=== PATIENT | male | born 1980 | race Caucasian/White ===

== ENCOUNTER 2016-08-02 09:22 | Inpatient (IN) | payer OTHER ==
[2016-08-02 10:48] VITALS: BMI 24.3
--- NOTE | 2016-08-02 14:18 | HP ---
COWS - Scale Resting Pulse: 1= [place] 81-100 Sweatin=Flushed/Facial Moisture Restless Observation: 3= Extraneous Movement Pupil Size: 2= Moderately Dilated Bone or Joint Aches: 2= Severe Diffuse Aches Runny Nose/ Eye Tearin= Runny Nose/Eyes GI Upset > 30mins: 3= Vomiting/Diarrhea Tremor Observation: 2= Slight Tremor Visible Yawning Observation: 2= >3x During Session Anxiety or Irritability: 2=Irritable/Anxious Goose Flesh Skin: 0=Smooth Skin COWS Score: 21 Admission ROS S - HPI Chief Complaint: I NEED HELP TO STOP USING HEROIN AND COCAINE Allergies/Adverse Reactions: Allergies Allergy/AdvReac Type Severity Reaction Status Date / Time No Known Allergies Allergy Verified 08/02/16 11:56 History of Present Illness: THIS 35 YEARS OLD MALE WITH HEROIN AND COCAINE DEPENDENCE,SEEKING HELP TO STOP USING DRUGS,NEVER BEEN IN DETOX BEFORE NICOTINE DEPENDENCE Exam Limitations: No Limitations - Ebola screening Have you traveled outside of the country in the last 21 days: No Have you had contact with anyone from an Ebola affected area: No Have you been sick,other than usual withdrawal symptoms: No - Review of Systems Constitutional: Chills, Diaphoresis, Loss of Appetite, Malaise, Night Sweats, Changes in sleep, Weakness, Unintentional Wgt. Loss EENT: reports: Tearing, Nose Congestion Respiratory: reports: No Symptoms reported Cardiac: reports: Palpitations GI: reports: Diarrhea, Nausea, Vomiting, Abdominal cramping : reports: No Symptoms Reported Musculoskeletal: reports: Back Pain, Joint Pain, Muscle Pain, Joint Stiffness Integumentary: reports: Dryness Hematology: reports: No Symptoms Reported Psychiatric: reports: No Sypmtoms Reported, Judgement Intact, Mood/Affect Appropiate, Orientated x3 Patient History - Patient Medical History Hx Anemia: No Hx Asthma: No Hx Chronic Obstructive Pulmonary Disease (COPD): No Hx Cancer: No Hx Cardiac Disorders: No Hx Congestive Heart Failure: No Hx Hypertension: No Hx Pacemaker: No HX Cerebrovascular Accident: No Hx Seizures: No Hx Dementia: No Hx Diabetes: No Hx Gastrointestinal Disorders: No Hx Liver Disease: No Hx Genitourinary Disorders: No Hx Sexually Transmitted Disorders: No Hx Renal Disease (ESRD): No Hx Thyroid Disease: No Hx Human Immunodeficiency Virus (HIV): No (LAST 2015 NEGATIVE) Hx Hepatitis C: No Hx Depression: No Hx Suicide Attempt: No Hx Bipolar Disorder: No Hx Schizophrenia: No Other Medical History: NO SUICIDAL,NO HOMICIDAL - Patient Surgical History Past Surgical History: Yes Hx Neurologic Surgery: No Hx Cataract Extraction: No Hx Cardiac Surgery: No Hx Lung Surgery: No Hx Breast Surgery: No Hx Breast Biopsy: No Hx Abdominal Surgery: Yes (umbilical hernia repair x2 IN 2007.2013) Hx Appendectomy: No Hx Cholecystectomy: No Hx Genitourinary Surgery: No Hx Section: No Hx Orthopedic Surgery: No Other Surgical History: LEFT INGUINAL HERNIA IN 2007,REMOVAL OF LYMPH NODE RIGHT GROIN IN 2007 Anesthesia Reaction: No - PPD History Previous Implant?: Yes Documented Results: Negative w/o proof Implanted On Prior [facility] Admission?: No PPD to be Administered?: Yes - Smoking Cessation Smoking history: Current every day smoker Have you smoked in the past 12 months: Yes Aproximately how many cigarettes per day: 40 Hx Chewing Tobacco Use: No Initiated information on smoking cessation: Yes 'Breaking Loose' booklet given: 08/02/16 - Substance & Tx. History Hx Alcohol Use: No Hx Substance Use: Yes Substance Use Type: Cocaine, Heroin Hx Substance Use Treatment: No - Substances Abused Heroin Route: Injection Frequency: Daily Amount used: 13 bags Age of first use: 33 Date of Last Use: 08/01/16 Cocaine Route: Injection Frequency: Daily Amount used: $100 Age of first use: 14 Date of Last Use: 07/31/16 Family Disease History - Family Disease History Family History: Denies Admission Physical Exam BHS - Vital Signs Vital Signs: Vital Signs - 24 hr 08/02/16 10:44 Temperature 97.1 F L Pulse Rate 91 H Respiratory 20 Rate Blood Pressure 122/72 - Physical General Appearance: Yes: Moderate Distress, Tremorous, Irritable, Sweating, Anxious HEENTM: Yes: Normal ENT Inspection, [place], Pharynx Normal Respiratory: Yes: Lungs Clear, Normal Breath Sounds, No Respiratory Distress Neck: Yes: Within Normal Limits, Supple, Trachea in good position Breast: Yes: Within Normal Limits Cardiology: Yes: Within Normal Limits, Regular Rhythm, Regular Rate, S1, S2 Abdominal: Yes: Within Normal Limits, Normal Bowel Sounds, Non Tender, Flat, Soft Genitourinary: Yes: Within Normal Limits Back: Yes: Within Normal Limits, Normal Inspection, Muscle Spasm Musculoskeletal: Yes: full range of Motion, Back pain, Muscle Pain Extremities: Yes: Within Normal Limits, Normal Inspection, Normal Range of Motion Neurological: Yes: high value associate II-XII NML intact, Fully Oriented, Alert, Motor Strength 5/5 Integumentary: Yes: Dry, Track Meyers Lymphatic: Yes: Within Normal Limits - Diagnostic (1) Opioid dependence with withdrawal Current Visit: Yes Status: Acute (2) Weight loss Current Visit: Yes Status: Acute (3) Nicotine dependence Current Visit: Yes Status: Acute Cleared for Admission [facility] - Detox or Rehab [facility] Level of Care: Medically Managed Detox Regimen/Protocol: Methadone [facility] Breath Alcohol Content Breath Alcohol Content: 0 Urine Drug Screen - Results Drug Screen Negative: No Urine Drug Screen Results: NETTA-Cocaine, OPI-Opiates
[2016-08-02] MEDS ORDERED: P-EPHED 60MG/TRIPROLIDI 2.5MG TABLET PO PRN (14:28)
[2016-08-02] MEDS ORDERED: guaiFENesin/D-METHORPHAN HB 10 ML UNIT-DOSE CUPS PO PRN (14:28)
[2016-08-02] MEDS ORDERED: MAG HYDROX/AL HYDROX/SIMETH 30 ML UNIT-DOSE CUP PO PRN (14:28)
[2016-08-02] MEDS ORDERED: IBUPROFEN 400 MG TABLET (FP) PO PRN (14:28)
[2016-08-02] MEDS ORDERED: MAGNESIUM HYDROX 2400MG/30ML ORAL SUSPENSION 30 ML CUP PO PRN (14:28)
[2016-08-02] MEDS ORDERED: MENTHOL/PHENOL 1 EACH UD MM PRN (14:28)
[2016-08-02] MEDS ORDERED: MAGNESIUM CITRATE 300 ML BOTTLE PO PRN (14:28)
[2016-08-02] MEDS ORDERED: ACETAMINOPHEN 325 MG TABLET (FP) PO PRN (14:28)
[2016-08-02] MEDS ORDERED: LOPERAMIDE HCL 2 MG CAPSULE PO PRN (14:28)
[2016-08-02] MEDS ORDERED: NICOTINE POLACRILEX 2 MG GUM BUC PRN (14:28)
[2016-08-02] MEDS ORDERED: METHADONE HCL 10 MG TABLET (FOR DETOX USE ONLY) PO ONE ×2 (15:00→23:00)
[2016-08-02] MEDS: diazePAM 5 MG TABLET PO PRN ×2 (15:09→19:15)
[2016-08-02 17:17] LABS: URINE APPEARANCE CLEAR; URINE BILIRUBIN NEGATIVE (NEGATIVE); URINE BLOOD NEGATIVE (NEGATIVE); URINE COLOR LTYELLOW; URINE GLUCOSE (UA) NEGATIVE (NEGATIVE); URINE KETONE NEGATIVE (NEGATIVE); URINE LEUK ESTERASE NEGATIVE (NEGATIVE); URINE NITRITE NEGATIVE (NEGATIVE); URINE PROTEIN NEGATIVE (NEGATIVE); URINE UROBILINOGEN NEGATIVE E.U./dl (0.2-1.0)
[2016-08-02] MEDS: CYCLOBENZAPRINE HCL 10 MG TABLET (FP) PO PRN (20:50)
[2016-08-02] MEDS: diphenhydrAMINE HCL 50 MG CAPSULE PO PRN (22:45)
[2016-08-02] MEDS: cloNIDine HCL 0.1 MG TABLET PO SCH (22:45)
[2016-08-02] MEDS: THIAMINE HCL 100 MG TABLET (FP) PO SCH (22:46)
[2016-08-03] MEDS: CYCLOBENZAPRINE HCL 10 MG TABLET (FP) PO PRN (05:35)
[2016-08-03] MEDS: diazePAM 5 MG TABLET PO PRN ×4 (05:36→20:15)
[2016-08-03 09:21] LABS: HIV 1 & 2 AB NEGATIVE; HIV 1 AGp24 NEGATIVE
[2016-08-03] MEDS ORDERED: METHADONE HCL 10 MG TABLET (FOR DETOX USE ONLY) PO ONE (10:00)
[2016-08-03 10:01] LABS: MCH 27.4 pg (25.7-33.7); MCHC 32.6 g/dl (32.0-35.9); MEAN CELL VOLUME 84.3 fl (80-96); MEAN PLT VOLUME 9.7 fl (7.5-11.1); PLATELET COUNT 260 K/MM3 (134-434)
[2016-08-03] MEDS: cloNIDine HCL 0.1 MG TABLET PO SCH ×2 (10:30→22:40)
[2016-08-03 10:31] LABS: ALBUMIN 3.4 g/dl (3.4-5.0); ALK PHOS 61 U/L (45-117); ANION GAP 7 (8-16); BILIRUBIN,TOTAL 0.2 mg/dL (0.2-1.0); CALCIUM 8.8 mg/dL (8.5-10.1); CO2 27 mmol/L (21-32); COCKROFT - GAULT 110.31; GLUCOSE,RANDOM 104 mg/dL (74-106); SGOT/AST 12 U/L (15-37); SGPT/ALT 21 U/L (12-78); TOT PROT 6.8 g/dl (6.4-8.2)
--- NOTE | 2016-08-03 10:37 | EKG ---
Test Reason : Blood Pressure : / mmHG Vent. Rate : 084 BPM Atrial Rate : 084 BPM P-R Int : 144 ms QRS Dur : 084 ms QT Int : 352 ms P-R-T Axes : 073 080 062 degrees QTc Int : 415 ms NORMAL SINUS RHYTHM NORMAL ECG NO PREVIOUS ECGS AVAILABLE Confirmed by DAYTON HANLEY, KASEY ([id number]) on 08/03/2016 10:37:05 AM Referred By: Luiz Darnell Confirmed By:KASEY BURRIS MD
--- NOTE | 2016-08-03 11:51 | PN ---
BHS COWS - Scale Resting Pulse: 1= [place] 81-100 Sweatin= Chills/Flushing Restless Observation: 3= Extraneous Movement Pupil Size: 2= Moderately Dilated Bone or Joint Aches: 4=Acute Joint/Muscle Pain Runny Nose/ Eye Tearin= Nasal Congestion GI Upset > 30mins: 1= Stomach Cramp Tremor Observation of Outstretched Hands: 2= Slight Tremor Visible Yawning Observation: 2= >3x During Session Anxiety or Irritability: 2=Irritable/Anxious Goose Flesh Skin: 0=Smooth Skin COWS Score: 19 BHS Progress Note (SOAP) Subjective: ANXIETY,SWEATS,HEADACHE,DIARRHEA,INTERMITTENT SLEEP. Objective: 08/03/16 11:50 Vital Signs Temperature 97.4 F L 08/03/16 10:24 Pulse Rate 86 08/03/16 10:24 Respiratory Rate 18 08/03/16 10:24 Blood Pressure 138/93 08/03/16 10:24 O2 Sat by Pulse Oximetry (%) Laboratory Last Values WBC 7.0 K/mm3 (4.0-10.0) 08/03/16 06:00 RBC 4.82 M/mm3 (4.00-5.60) 08/03/16 06:00 Hgb 13.2 GM/dL (11.7-16.9) 08/03/16 06:00 Hct 40.6 % (35.4-49) 08/03/16 06:00 MCV 84.3 fl (80-96) 08/03/16 06:00 MCHC 32.6 g/dl (32.0-35.9) 08/03/16 06:00 RDW 15.0 % (11.9-15.9) 08/03/16 06:00 Plt Count 260 K/MM3 (134-434) 08/03/16 06:00 MPV 9.7 fl (7.5-11.1) 08/03/16 06:00 Sodium 139 mmol/L (136-145) 08/03/16 06:00 Potassium 4.5 mmol/L (3.5-5.1) 08/03/16 06:00 Chloride 105 mmol/L (98-107) 08/03/16 06:00 Carbon Dioxide 27 mmol/L (21-32) 08/03/16 06:00 Anion Gap 7 (8-16) L 08/03/16 06:00 BUN 21 mg/dL (7-18) H 08/03/16 06:00 Creatinine 1.0 mg/dL (0.7-1.3) 08/03/16 06:00 Creat Clearance w eGFR > 60 (>60) 08/03/16 06:00 Random Glucose 104 mg/dL (74-106) 08/03/16 06:00 Calcium 8.8 mg/dL (8.5-10.1) 08/03/16 06:00 Total Bilirubin 0.2 mg/dL (0.2-1.0) 08/03/16 06:00 AST 12 U/L (15-37) L 08/03/16 06:00 ALT 21 U/L (12-78) 08/03/16 06:00 Alkaline Phosphatase 61 U/L (45-117) 08/03/16 06:00 Total Protein 6.8 g/dl (6.4-8.2) 08/03/16 06:00 Albumin 3.4 g/dl (3.4-5.0) 08/03/16 06:00 Urine Color Ltyellow 08/02/16 15:00 Urine Appearance Clear 08/02/16 15:00 Urine pH 5.0 (5.0-8.0) 08/02/16 15:00 Ur Specific [place] >= 1.030 (1.005-1.025) H 08/02/16 15:00 Urine Protein Negative (NEGATIVE) 08/02/16 15:00 Urine Glucose (UA) Negative (NEGATIVE) 08/02/16 15:00 Urine Ketones Negative (NEGATIVE) 08/02/16 15:00 Urine Blood Negative (NEGATIVE) 08/02/16 15:00 Urine Nitrite Negative (NEGATIVE) 08/02/16 15:00 Urine Bilirubin Negative (NEGATIVE) 08/02/16 15:00 Urine Urobilinogen Negative E.U./dl (0.2-1.0) 08/02/16 15:00 Ur Leukocyte Esterase Negative (NEGATIVE) 08/02/16 15:00 RPR Titer Nonreactive (NONREACTIVE) 08/03/16 06:00 HIV 1&2 Antibody Screen Negative 08/02/16 14:00 HIV P24 Antigen Negative 08/02/16 14:00 Assessment: 08/03/16 11:50 Plan: CONTINUE DETOX MOTRIN OR TYLENOL PRN IMODIUM PRN.
[2016-08-03] MEDS: THIAMINE HCL 100 MG TABLET (FP) PO SCH (22:40)
[2016-08-03] MEDS: diphenhydrAMINE HCL 50 MG CAPSULE PO PRN (22:41)
[2016-08-04] MEDS: CYCLOBENZAPRINE HCL 10 MG TABLET (FP) PO PRN ×3 (00:32→22:23)
[2016-08-04] MEDS: diazePAM 5 MG TABLET PO PRN ×5 (00:32→22:23)
[2016-08-04] MEDS: diphenhydrAMINE HCL 50 MG CAPSULE PO PRN ×2 (00:32→22:24)
[2016-08-04] MEDS ORDERED: METHADONE HCL 5 MG TABLET (FOR DETOX USE ONLY) PO ONE (10:00)
--- NOTE | 2016-08-04 10:29 | PN ---
BHS COWS - Scale Resting Pulse: 2= [place] 101-120 Sweatin=Flushed/Facial Moisture Restless Observation: 1= Difficult to Sit Still Pupil Size: 0= Normal to Room Light Bone or Joint Aches: 2= Severe Diffuse Aches Runny Nose/ Eye Tearin= Runny Nose/Eyes GI Upset > 30mins: 2= Nausea/Diarrhea Tremor Observation of Outstretched Hands: 2= Slight Tremor Visible Yawning Observation: 1= 1-2x During Session Anxiety or Irritability: 2=Irritable/Anxious Goose Flesh Skin: 0=Smooth Skin COWS Score: 16 BHS Progress Note (SOAP) Subjective: Sweating,anxiety,tremors,interrupted sleep,restless,muscle aches/spasm. Objective: 08/04/16 10:24 Vital Signs - 8 hr 08/04/16 08/04/16 03:30 06:33 Temperature 96.7 F L Pulse Rate 107 H Respiratory 18 18 Rate Blood Pressure 116/83 Laboratory Tests 08/02/16 08/02/16 08/03/16 14:00 15:00 06:00 WBC 7.0 RBC 4.82 Hgb 13.2 Hct 40.6 MCV 84.3 MCHC 32.6 RDW 15.0 Plt Count 260 MPV 9.7 Sodium Potassium Chloride Carbon Dioxide Anion Gap BUN Creatinine Creat Clearance w eGFR Random Glucose Calcium Total Bilirubin AST ALT Alkaline Phosphatase Total Protein Albumin Urine Color Ltyellow Urine Appearance Clear Urine pH 5.0 Ur Specific [place] >= 1.030 H Urine Protein Negative Urine Glucose (UA) Negative Urine Ketones Negative Urine Blood Negative Urine Nitrite Negative Urine Bilirubin Negative Urine Urobilinogen Negative Ur Leukocyte Esterase Negative RPR Titer HIV 1&2 Antibody Screen Negative HIV P24 Antigen Negative 08/03/16 08/03/16 06:00 06:00 WBC RBC Hgb Hct MCV MCHC RDW Plt Count MPV Sodium 139 Potassium 4.5 Chloride 105 Carbon Dioxide 27 Anion Gap 7 L BUN 21 H Creatinine 1.0 Creat Clearance w eGFR > 60 Random Glucose 104 Calcium 8.8 Total Bilirubin 0.2 AST 12 L ALT 21 Alkaline Phosphatase 61 Total Protein 6.8 Albumin 3.4 Urine Color Urine Appearance Urine pH Ur Specific [place] Urine Protein Urine Glucose (UA) Urine Ketones Urine Blood Urine Nitrite Urine Bilirubin Urine Urobilinogen Ur Leukocyte Esterase RPR Titer Nonreactive HIV 1&2 Antibody Screen HIV P24 Antigen labs noted Assessment: 08/04/16 10:24 Withdrawal sx. Plan: Continue detox
[2016-08-04] MEDS: cloNIDine HCL 0.1 MG TABLET PO SCH ×2 (10:44→22:23)
[2016-08-04] MEDS: hydrOXYzine PAMOATE 50 MG CAPSULE (FP) PO PRN (12:20)
[2016-08-04] MEDS: THIAMINE HCL 100 MG TABLET (FP) PO SCH (22:23)
[2016-08-05] MEDS: diphenhydrAMINE HCL 50 MG CAPSULE PO PRN ×2 (00:02→22:27)
[2016-08-05] MEDS: diazePAM 5 MG TABLET PO PRN ×2 (05:50→10:42)
[2016-08-05] MEDS: CYCLOBENZAPRINE HCL 10 MG TABLET (FP) PO PRN ×3 (05:50→22:27)
[2016-08-05] MEDS ORDERED: METHADONE HCL 5 MG TABLET (FOR DETOX USE ONLY) PO ONE (10:00)
[2016-08-05] MEDS: cloNIDine HCL 0.1 MG TABLET PO SCH ×2 (10:41→22:27)
[2016-08-05] MEDS ORDERED: ONDANSETRON *ODT* 4 MG TABLET SL ONE (11:38)
[2016-08-05] MEDS: hydrOXYzine PAMOATE 50 MG CAPSULE (FP) PO PRN ×2 (13:37→19:13)
--- NOTE | 2016-08-05 20:59 | PN ---
BHS Progress Note (SOAP) Subjective: Tremors, Vomiting, Diarrhea, Stomach Cramping, Body Aches. Objective: PT. A & O X 3, OBSERVED AMBULATING ON UNIT. NO ACUTE DISTRESS. PT. DENIES CHEST PAIN. 08/05/16 20:55 Vital Signs Temperature 97.4 F L 08/05/16 17:46 Pulse Rate 117 H 08/05/16 17:46 Respiratory Rate 18 08/05/16 17:46 Blood Pressure 129/77 08/05/16 17:46 O2 Sat by Pulse Oximetry (%) Laboratory Tests 08/02/16 08/02/16 08/03/16 14:00 15:00 06:00 WBC 7.0 RBC 4.82 Hgb 13.2 Hct 40.6 MCV 84.3 MCHC 32.6 RDW 15.0 Plt Count 260 MPV 9.7 Sodium Potassium Chloride Carbon Dioxide Anion Gap BUN Creatinine Creat Clearance w eGFR Random Glucose Calcium Total Bilirubin AST ALT Alkaline Phosphatase Total Protein Albumin Urine Color Ltyellow Urine Appearance Clear Urine pH 5.0 Ur Specific [place] >= 1.030 H Urine Protein Negative Urine Glucose (UA) Negative Urine Ketones Negative Urine Blood Negative Urine Nitrite Negative Urine Bilirubin Negative Urine Urobilinogen Negative Ur Leukocyte Esterase Negative RPR Titer HIV 1&2 Antibody Screen Negative HIV P24 Antigen Negative 08/03/16 08/03/16 06:00 06:00 WBC RBC Hgb Hct MCV MCHC RDW Plt Count MPV Sodium 139 Potassium 4.5 Chloride 105 Carbon Dioxide 27 Anion Gap 7 L BUN 21 H Creatinine 1.0 Creat Clearance w eGFR > 60 Random Glucose 104 Calcium 8.8 Total Bilirubin 0.2 AST 12 L ALT 21 Alkaline Phosphatase 61 Total Protein 6.8 Albumin 3.4 Urine Color Urine Appearance Urine pH Ur Specific [place] Urine Protein Urine Glucose (UA) Urine Ketones Urine Blood Urine Nitrite Urine Bilirubin Urine Urobilinogen Ur Leukocyte Esterase RPR Titer Nonreactive HIV 1&2 Antibody Screen HIV P24 Antigen LABS NOTED. Assessment: 08/05/16 20:56 WITHDRAWAL SYMPTOMS. Plan: CONTINUE DETOX. PRN IMMOODIUM FOR DIARRHEA. PRN FLEXERIL FOR BODY ACHES /MUSCLES SPASMS. ZOFRAN SL FOR VOMITING. ADVISED PATIENT TO FOLLOWUP WITH [employer] [employer] AFTER DISCHARGE FROM DETOX FOR GENERAL MEDICAL ASSESSMENT.
[2016-08-05] MEDS: THIAMINE HCL 100 MG TABLET (FP) PO SCH (22:27)
[2016-08-06] MEDS: CYCLOBENZAPRINE HCL 10 MG TABLET (FP) PO PRN (05:48)
[2016-08-06] MEDS: hydrOXYzine PAMOATE 50 MG CAPSULE (FP) PO PRN (05:48)
[2016-08-06 09:33] VITALS: BP 117/86; PULSE 86; TEMP 97.3
[2016-08-06] MEDS ORDERED: METHADONE HCL 10 MG TABLET (FOR DETOX USE ONLY) PO ONE (10:00)
[2016-08-06] MEDS: cloNIDine HCL 0.1 MG TABLET PO SCH (10:16)
--- NOTE | 2016-08-06 12:31 | DS ---
[facility] Detox Discharge Summary Admission Date: 08/02/16 Discharge Date: 08/06/16 - History Present History: Cocaine Dependence, Opioid Dependence Additional Comments: Patient initially for discharge tomorrow. He requested to be discharged today after his 10mg of methadone. As per patient, he has to go to [place] today and already purchased his ticket to leave this afternoon. He denies any withdrawal symptoms but was very agitated demanding to be released today. As per patient, he has been here since Sunday and already did 5 days and should have been released already. Pertinent Past History: Denies - Physical Exam Results Vital Signs: Vital Signs Temperature 97.3 F L 08/06/16 09:32 Pulse Rate 86 08/06/16 09:32 Respiratory Rate 20 08/06/16 09:32 Blood Pressure 117/86 08/06/16 09:32 O2 Sat by Pulse Oximetry (%) Pertinent Admission Physical Exam Findings: Withdrawal symptoms Laboratory Tests 08/02/16 08/02/16 08/03/16 14:00 15:00 06:00 WBC 7.0 RBC 4.82 Hgb 13.2 Hct 40.6 MCV 84.3 MCHC 32.6 RDW 15.0 Plt Count 260 MPV 9.7 Sodium Potassium Chloride Carbon Dioxide Anion Gap BUN Creatinine Creat Clearance w eGFR Random Glucose Calcium Total Bilirubin AST ALT Alkaline Phosphatase Total Protein Albumin Urine Color Ltyellow Urine Appearance Clear Urine pH 5.0 Ur Specific [place] >= 1.030 H Urine Protein Negative Urine Glucose (UA) Negative Urine Ketones Negative Urine Blood Negative Urine Nitrite Negative Urine Bilirubin Negative Urine Urobilinogen Negative Ur Leukocyte Esterase Negative RPR Titer HIV 1&2 Antibody Screen Negative HIV P24 Antigen Negative 08/03/16 08/03/16 06:00 06:00 WBC RBC Hgb Hct MCV MCHC RDW Plt Count MPV Sodium 139 Potassium 4.5 Chloride 105 Carbon Dioxide 27 Anion Gap 7 L BUN 21 H Creatinine 1.0 Creat Clearance w eGFR > 60 Random Glucose 104 Calcium 8.8 Total Bilirubin 0.2 AST 12 L ALT 21 Alkaline Phosphatase 61 Total Protein 6.8 Albumin 3.4 Urine Color Urine Appearance Urine pH Ur Specific [place] Urine Protein Urine Glucose (UA) Urine Ketones Urine Blood Urine Nitrite Urine Bilirubin Urine Urobilinogen Ur Leukocyte Esterase RPR Titer Nonreactive HIV 1&2 Antibody Screen HIV P24 Antigen Labs noted - Treatment Hospital Course: Detox Protocol Followed, Detoxed Safely, Responded well, Discharged Condition Good - Medication Discharge Medications: Ambulatory Orders NK [No Known Home Medication] 08/02/16 - Diagnosis (1) Nicotine dependence Status: Chronic (2) Opioid dependence with withdrawal Status: Acute (3) Cocaine dependence Status: Chronic - AMA Did Patient Leave Against Medical Advice: No
[2016-08-07] MEDS ORDERED: METHADONE HCL 5 MG TABLET (FOR DETOX USE ONLY) PO ONE (06:00)
== END 2016-08-06 10:48 | disposition home or self-care (01) | DRG 773 ==
LOC: YASAS 09:22 → Y3N 12:51
PROVIDERS: ADMIT Internal Medicine; ATTEND Internal Medicine
PROC: HZ2ZZZZ Detoxification Services for Substance Abuse Treatment (ICD-10-PCS; principal; 2016-08-02)
DX: F11.23 Opioid dependence with withdrawal (principal); F14.20 Cocaine dependence, uncomplicated; F17.210 Nicotine dependence, cigarettes, uncomplicated
CPT/HCPCS: 36415; 80053; 81003; 85027; 86593; 87389; 93005; 93010